=== PATIENT | female | born 2005 | race African-American/Black ===

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

== ENCOUNTER 2025-02-24 10:13 | Emergency (ER) | payer MEDICAID ==
[~2025-02-24] VITALS: Ht 162.6 cm; Wt 68.0 kg
[2025-02-24 10:29] VITALS: O2SAT 100
[2025-02-24] MEDS: LIDOCAINE 5% PATCH TOP STA (13:02)
[2025-02-24 13:07] LABS: BASOPHILS % 0.7 % (0.0-2.0); EOSINOPHILS % 1.7 % (0.0-5.0); HEMATOCRIT. 36.8 % (36.0-48.0); HEMOGLOBIN. 12.4 g/dL (12.0-16.0); LYMPHOCYTES % 23.2 % (20.0-50.0); MEAN PLATELET VOLUME 8.2 fl (7.4-10.4); MONOCYTES % 5.7 % (2.0-8.0); NEUTROPHILS % 68.7 % (40.0-76.0); PLATELET 290 x1000/uL (130-400); RED BLOOD CELL COUNT 4.49 mill/uL (4.2-5.4); RED CELL DISTRIBUTION WIDTH 16.8 % (11.6-14.6)
[2025-02-24 13:23] LABS: CREATININE 0.7 mg/dL (0.6-1.0); UREA NITROGEN BLOOD < 5 mg/dL (9-23)
[2025-02-24 13:24] LABS: TROPONIN I HIGH SENSITIVITY < 4 ng/L (3.0-34)
[2025-02-24 13:25] LABS: ASPARTATE AMINOTRANSFERASE 15 IU/L (<34); BILIRUBIN DIRECT 0.2 mg/dL (<=3.0); BILIRUBIN TOTAL 0.8 mg/dL (0.1-1.0); PROTEIN TOTAL 7.7 g/dL (6.0-8.3)
[2025-02-24 13:26] LABS: HCG SCREEN NEGATIVE
[2025-02-24 15:49] VITALS: BP 135/85; PULSE 99; RESP 18; TEMP 36.8; O2SAT 99
== END 2025-02-24 15:50 | disposition home or self-care (01) ==
LOC: ER 10:13
DX: R07.89 Other chest pain (principal); M79.651 Pain in right thigh; Z79.3 Long term (current) use of hormonal contraceptives
CPT/HCPCS: 36415; 71045; 80048; 80076; 84484; 84703; 85025; 93005; 93971; 99285